=== PATIENT | male | born 1960 | race Caucasian/White ===

== ENCOUNTER 2017-05-22 11:30 | Observation (INO) ==
[2017-05-22] MEDS ORDERED: SODIUM CHLORIDE 0.9% 500 ML IV STA (11:46)
[2017-05-22 12:08] LABS: Basophils % 0.5 % (0.0-0.8); Eosinophils # 0.1 10*3/uL (0.0-0.87); Eosinophils % 1.5 % (0.00-10.9); Hematocrit 27.8 VOL% (42.0-52.0); Hemoglobin 9.5 GM/DL (14.0-18.0); Immature Granulocytes % 0.2 %; Immature Granulocytes Absolute 0.02 #; Lymphocytes # 1.7 10*3/uL (1.4-4.0); Lymphocytes % 19.7 % (21.2-54.2); Mean Corpuscular HGB Conc 34.2 GM/DL (32-36); Mean Corpuscular Hemoglobin 31 PG (27-34); Mean Corpuscular Volume 89.7 FL (87-102); Mean Platelet Volume 9.8 FL (9.6-12.0); Monocytes # 0.8 10*3/uL (0.11-0.8); Monocytes % 9.3 % (1.7-12.7); Neutrophils # 5.8 10*3/uL (1.4-7.4); Neutrophils % 68.8 % (38.7-73.9); Platelet Count 281 T/CUMM (130-400); Red Cell Distribution Width 13.4 % (9.3-17.3); White Blood Count 8.4 T/CUMM (4-12)
[2017-05-22] MEDS ORDERED: LACTATED RINGERS 1,000 ML IV ONE (12:11)
[2017-05-22] MEDS ORDERED: ONDANSETRON 4 MG/2 ML VIAL IV STA (12:11)
[2017-05-22] MEDS ORDERED: VANCOMYCIN INJ 1,000 MG in SODIUM CHLORIDE 0.9% 250 ML IV STA (12:11)
[2017-05-22] MEDS ORDERED: HYDROmorphone 2 MG/1 ML VIAL IV STA (12:11)
[2017-05-22 12:16] LABS: INR 0.9; Partial Thromboplastin Time 25.7 SECS (0-40)
[2017-05-22] MEDS ORDERED: HYDROmorphone 2 MG/1 ML VIAL ONE ×2 (12:17→15:09)
[2017-05-22 12:45] LABS: Albumin 3.1 G/DL (3.4-5.0); Bilirubin,Total 0.5 MG/DL (0.2-1.0); Calcium 8.6 MG/DL (8.5-10.1); Osmolality,Calculated 280.3 MOS/KG (273-304); Potassium 4.1 MMOL/L (3.5-5.1); Total Protein 6.2 G/DL (6.4-8.3)
[2017-05-22] MEDS ORDERED: VANCOMYCIN 1,000 MG VIAL ONE (12:51)
[2017-05-22] MEDS ORDERED: ONDANSETRON 4 MG/2 ML VIAL ONE ×2 (12:56→15:05)
[2017-05-22] MEDS ORDERED: TISSUE ADHESIVE 1 EACH APPLICATOR TOP ONE (14:33)
[2017-05-22] MEDS ORDERED: ONDANSETRON 4 MG/2 ML VIAL IV PRN (14:45)
[2017-05-22] MEDS ORDERED: PROPOFOL 200 MG/20 ML VIAL IV ONE (15:04)
[2017-05-22] MEDS ORDERED: SEVOFLURANE 1 UNIT/15 MINUTE INH ONE (15:04)
[2017-05-22] MEDS ORDERED: MIDAZOLAM 2 MG/2 ML VIAL ONE (15:04)
[2017-05-22] MEDS ORDERED: DEXAMETHASONE 10 MG/1 ML VIAL ONE (15:05)
[2017-05-22] MEDS ORDERED: NEOSTIGMINE 10 MG/10 ML VIAL ONE (15:05)
[2017-05-22] MEDS ORDERED: GLYCOPYRROLATE 0.4 MG/2 ML VIAL ONE (15:05)
[2017-05-22] MEDS ORDERED: KETOROLAC 30 MG/1 ML VIAL ONE (15:05)
[2017-05-22] MEDS ORDERED: fentaNYL 100 MCG/2 ML VIAL ONE (15:05)
[2017-05-22] MEDS ORDERED: ROCURONIUM 100 MG/10 ML VIAL IV ONE (15:05)
[2017-05-22 16:13] LABS: Hematocrit 25.5 VOL% (42.0-52.0); Hemoglobin 8.6 GM/DL (14.0-18.0)
[2017-05-22] MEDS: MORPHINE 2 MG/1 ML SYRINGE IV PRN ×2 (19:01→21:25)
[2017-05-22] MEDS ORDERED: CYCLOBENZAPRINE 10 MG TABLET PO SCH (21:00)
[2017-05-22] MEDS ORDERED: ZALEPLON 5 MG CAPSULE PO SCH (21:00)
[2017-05-22] MEDS ORDERED: clonazePAM 0.5 MG TABLET PO SCH (21:00)
[2017-05-22 23:32] LABS: Hematocrit 25.9 VOL% (42.0-52.0); Hemoglobin 8.8 GM/DL (14.0-18.0)
[2017-05-23 07:13] LABS: Hematocrit 25.3 VOL% (42.0-52.0); Hemoglobin 8.5 GM/DL (14.0-18.0)
[2017-05-23 08:24] VITALS: BP 106/65
== END 2017-05-23 11:15 | disposition home or self-care (01) ==
LOC: N.ED 11:30 → N.EDINP 11:30 → N.3E 13:34
PROVIDERS: ADMIT Surgery; ATTEND Surgery

== ENCOUNTER 2018-06-10 16:29 | Inpatient (IN) ==
[2018-06-10] MEDS ORDERED: SODIUM CHLORIDE 0.9% 1,000 ML IV STA (16:56)
[2018-06-10 17:43] LABS: Albumin 3.7 G/DL (3.4-5.0); Bilirubin,Total 0.4 MG/DL (0.2-1.0); Calcium 8.5 MG/DL (8.5-10.1); Osmolality,Calculated 275.7 MOS/KG (273-304); Potassium 4.2 MMOL/L (3.5-5.1); Total Protein 7.7 G/DL (6.4-8.3)
[2018-06-10] MEDS ORDERED: ONDANSETRON 4 MG/2 ML VIAL ONE (19:40)
[2018-06-10] MEDS ORDERED: HYDROmorphone 2 MG/1 ML VIAL ONE (19:41)
[2018-06-10] MEDS ORDERED: HYDROmorphone 2 MG/1 ML VIAL IV STA (19:49)
[2018-06-10] MEDS ORDERED: ONDANSETRON 4 MG/2 ML VIAL IV STA (19:49)
[2018-06-10] MEDS ORDERED: ACETAMINOPHEN 325 MG TABLET PO PRN (22:12)
[2018-06-10] MEDS ORDERED: ONDANSETRON 4 MG/2 ML VIAL IV PRN (22:12)
[2018-06-10] MEDS: SODIUM CHLORIDE 0.9% 1,000 ML IV SCH (23:15)
[2018-06-11] MEDS: busPIRone 5 MG TABLET PO SCH ×3 (00:08→21:33)
[2018-06-11] MEDS: ZALEPLON 5 MG CAPSULE PO SCH ×2 (00:08→21:34)
[2018-06-11] MEDS: CYCLOBENZAPRINE 10 MG TABLET PO SCH ×2 (00:08→21:33)
[2018-06-11] MEDS: metroNIDAZOLE INJ 500 MG in PREMIX 1 EACH IV SCH ×2 (00:10→09:28)
[2018-06-11] MEDS: HYDROmorphone 2 MG/1 ML VIAL IV PRN ×5 (04:32→22:28)
[2018-06-11] MEDS: PIPERACILLIN/TAZOBACTAM 3,375 MG in SODIUM CHLORIDE 0.9% 100 ML IV SCH ×3 (05:00→21:32)
[2018-06-11 05:48] LABS: Basophils % 0.2 % (0.0-0.8); Hematocrit 42.3 VOL% (42.0-52.0); Immature Granulocytes % 0.4 %; Immature Granulocytes Absolute 0.05 #; Lymphocytes % 7.8 % (21.2-54.2); Mean Corpuscular HGB Conc 33.1 GM/DL (32-36); Mean Corpuscular Hemoglobin 30 PG (27-34); Mean Platelet Volume 10.5 FL (9.6-12.0); Monocytes # 1.1 10*3/uL (0.11-0.8); Monocytes % 8.6 % (1.7-12.7); Neutrophils # 10.8 10*3/uL (1.4-7.4); Platelet Count 193 T/CUMM (130-400); Red Cell Distribution Width 14.1 % (9.3-17.3)
[2018-06-11 06:24] LABS: Albumin 3.2 G/DL (3.4-5.0); Bilirubin,Total 0.4 MG/DL (0.2-1.0); Calcium 8.3 MG/DL (8.5-10.1); Osmolality,Calculated 276.5 MOS/KG (273-304); Potassium 3.3 MMOL/L (3.5-5.1); Total Protein 6.6 G/DL (6.4-8.3)
[2018-06-11] MEDS: SODIUM CHLORIDE 0.9% 1,000 ML IV SCH ×3 (06:40→19:30)
[2018-06-11] MEDS: hydroCHLOROthiazide 25 MG TABLET PO SCH (08:35)
[2018-06-11] MEDS: PANTOPRAZOLE 40 MG TABLET PO SCH (08:35)
[2018-06-11] MEDS: OLMESARTAN 20 MG TABLET PO SCH (08:35)
[2018-06-11] MEDS ORDERED: PANTOPRAZOLE 40 MG TABLET PO SCH (09:00)
[2018-06-11] MEDS: FLUTICASONE 50 MCG NASAL SPRAY 16 GM BOTTLE BOTH NARES SCH (10:18)
[2018-06-12] MEDS: PIPERACILLIN/TAZOBACTAM 3,375 MG in SODIUM CHLORIDE 0.9% 100 ML IV SCH ×3 (04:58→21:38)
[2018-06-12 07:49] LABS: Basophils % 0.2 % (0.0-0.8); Eosinophils # 0.1 10*3/uL (0.0-0.87); Eosinophils % 1.5 % (0.00-10.9); Hematocrit 39.2 VOL% (42.0-52.0); Hemoglobin 13.4 GM/DL (14.0-18.0); Immature Granulocytes % 0.3 %; Immature Granulocytes Absolute 0.02 #; Lymphocytes # 1.1 10*3/uL (1.4-4.0); Lymphocytes % 18.3 % (21.2-54.2); Mean Corpuscular HGB Conc 34.2 GM/DL (32-36); Mean Corpuscular Hemoglobin 30 PG (27-34); Mean Corpuscular Volume 88.9 FL (87-102); Mean Platelet Volume 10.1 FL (9.6-12.0); Monocytes % 17.1 % (1.7-12.7); Neutrophils # 3.8 10*3/uL (1.4-7.4); Neutrophils % 62.6 % (38.7-73.9); Platelet Count 173 T/CUMM (130-400); Red Blood Count 4.41 MC/CUMM (3.8-5.5); White Blood Count 6.1 T/CUMM (4-12)
[2018-06-12 08:07] LABS: Calcium 8.2 MG/DL (8.5-10.1); Osmolality,Calculated 281.1 MOS/KG (273-304); Potassium 3.7 MMOL/L (3.5-5.1)
[2018-06-12 08:09] LABS: Band Neutrophils 1 % (0-10); Eosinophils 2 % (0-10); Hypochromasia 1+; Lymphocytes 20 % (20-55); Platelet Estimate Adequate; Segmented Neutrophils 63 % (50-85); Total Cells Counted 100
[2018-06-12] MEDS: OLMESARTAN 20 MG TABLET PO SCH (09:10)
[2018-06-12] MEDS: PANTOPRAZOLE 40 MG TABLET PO SCH (09:10)
[2018-06-12] MEDS: hydroCHLOROthiazide 25 MG TABLET PO SCH (09:11)
[2018-06-12] MEDS: HYDROmorphone 2 MG/1 ML VIAL IV PRN ×4 (09:11→23:56)
[2018-06-12] MEDS: FLUTICASONE 50 MCG NASAL SPRAY 16 GM BOTTLE BOTH NARES SCH (10:09)
[2018-06-12] MEDS: busPIRone 5 MG TABLET PO SCH ×2 (10:59→21:39)
[2018-06-12] MEDS: CYCLOBENZAPRINE 10 MG TABLET PO SCH (21:41)
[2018-06-12] MEDS: ZALEPLON 5 MG CAPSULE PO SCH (21:41)
[2018-06-13] MEDS: PIPERACILLIN/TAZOBACTAM 3,375 MG in SODIUM CHLORIDE 0.9% 100 ML IV SCH (03:48)
[2018-06-13 05:35] LABS: Calcium 8.9 MG/DL (8.5-10.1); Osmolality,Calculated 280.1 MOS/KG (273-304); Potassium 3.8 MMOL/L (3.5-5.1)
[2018-06-13] MEDS: FLUTICASONE 50 MCG NASAL SPRAY 16 GM BOTTLE BOTH NARES SCH (09:14)
[2018-06-13] MEDS: hydroCHLOROthiazide 25 MG TABLET PO SCH (09:15)
[2018-06-13] MEDS: OLMESARTAN 20 MG TABLET PO SCH (09:15)
[2018-06-13] MEDS: PANTOPRAZOLE 40 MG TABLET PO SCH (09:15)
[2018-06-13] MEDS: busPIRone 5 MG TABLET PO SCH (09:21)
[2018-06-13 12:30] VITALS: BP 126/79
== END 2018-06-13 12:25 | disposition home or self-care (01) | DRG 390 ==
LOC: N.ED 16:29 → N.EDINP 18:39 → N.3E 21:05
PROVIDERS: ADMIT Surgery; ATTEND Surgery